=== PATIENT | female | born 1990 | race Caucasian/White ===

== ENCOUNTER 2017-03-12 21:34 | Emergency (ER) | payer MEDICAID ==
[~2017-03-12] VITALS: Ht 167.6 cm; Wt 52.2 kg
[2017-03-12 22:15] LABS: *BILIRUBIN,URIN NEGATIVE (NEGATIVE); *BLOOD, URINE NEGATIVE (NEGATIVE); *CLARITY,URINE CLEAR (CLEAR); *COLOR,URINE YELLOW (YELLOW); *KETONES,URINE NEGATIVE (NEGATIVE); *PROTEIN,URINE NEGATIVE (NEGATIVE); *UROBILINOGEN,URINE 0.2 E.U./dl (NORMAL); LEUKOCYTE ESTERASE ,URINE NEGATIVE (NEGATIVE); NITRITE, URINE NEGATIVE (NEGATIVE); PH,URINE 7.5 (5.0-8.0); UGLUCOSE NEGATIVE (NEGATIVE)
[2017-03-12 22:23] LABS: *URINE HCG, QUAL NEGATIVE (NEGATIVE)
[2017-03-12 22:40] LABS: BACTERIA,URINE NONE SEEN /HPF (NONE SEEN); RBC,URINE 0-3 /HPF (0-3); SQUAMOUS EPITHELIAL CELL,UR FEW /HPF (NONE SEEN); WBC,URINE 0-3 /HPF (0-3)
[2017-03-12] MEDS ORDERED: DOXYCYCLINE HYCLATE 100 MG TABLET PO ONE ×2 (22:45→23:00)
[2017-03-12] MEDS ORDERED: CEFTRIAXONE 500 MG VIAL IM ONE ×2 (22:45→23:00)
--- NOTE | 2017-03-12 22:54 | NUR ---
Patient discharged to home in stable conditon. Written and verbal after care instructions given. Patient verbalizes understanding of instructions.
[2017-03-12] MEDS ORDERED: LIDOCAINE HCL 1% 20 ML VIAL ONE (23:08)
[2017-03-12] MEDS ORDERED: DOXYCYCLINE HYCLATE 100 MG TABLET ONE (23:08)
[2017-03-12] MEDS ORDERED: CEFTRIAXONE 500 MG VIAL ONE (23:08)
== END 2017-03-12 22:54 | disposition home or self-care (01) ==
LOC: ER 21:34
DX: R10.2 Pelvic and perineal pain (principal)
CPT/HCPCS: 81001; 84703; 87210; 96372; 99284; A4663; J0696; J3490

== ENCOUNTER 2017-09-23 22:23 | Emergency (ER) | payer SELFPAY ==
[~2017-09-23] VITALS: Ht 165.1 cm; Wt 53.5 kg
--- NOTE | 2017-09-23 22:39 | NUR ---
DR. GALLOWAY AT BEDSIDE FOR MSE.
--- NOTE | 2017-09-23 23:34 | NUR ---
CAROLA AT BEDSIDE TALKING WITH PT.PT D/C HOME WITH FRIEND WITH [facility] EXPLAINED TO PT SHE VERBALIZED UNDERSTANDING.PAIN UNCHANGED.
== END 2017-09-23 23:38 | disposition home or self-care (01) ==
LOC: ER 22:24
DX: S63.611A Unspecified sprain of left index finger, initial encounter (principal); S63.610A Unspecified sprain of right index finger, initial encounter; W18.30XA Fall on same level, unspecified, initial encounter; Y93.89 Activity, other specified; Y92.89 Other specified places as the place of occurrence of the external cause; Y99.8 Other external cause status
CPT/HCPCS: 73130; A4663